=== PATIENT | male | born 1980 | race Caucasian/White ===

== ENCOUNTER 2024-12-06 19:30 | Emergency (ER) | payer SELFPAY ==
[2024-12-06 19:39] VITALS: TEMP 98.6; BMI 33.6
[2024-12-06] MEDS ORDERED: AMOX TR/POT CLAV 875MG/125MG TABLETS (FP) ONE (20:08)
[2024-12-06] MEDS ORDERED: ACETAMINOPHEN 500 MG TABLET (FP) ONE (20:08)
[2024-12-06] MEDS: ACETAMINOPHEN 500 MG TABLET (FP) PO ONE (20:11)
[2024-12-06] MEDS: AMOX TR/POT CLAV 875MG/125MG TABLETS (FP) PO ONE (20:11)
[2024-12-06 21:00] VITALS: BP 130/90; PULSE 100; RESP 18
== END 2024-12-06 21:47 | disposition home or self-care (01) ==
LOC: JERFT 19:30
DX: J01.90 Acute sinusitis, unspecified (principal); J02.9 Acute pharyngitis, unspecified; R50.9 Fever, unspecified; Z20.822 Contact with and (suspected) exposure to COVID-19
CPT/HCPCS: 0241U-QW; 87651; 99283-25

== ENCOUNTER 2024-12-14 16:37 | Inpatient (IN) | payer OTHER ==
[2024-12-14 17:12] VITALS: BMI 33.5
[2024-12-14 18:09] LABS: BASO % 0.2 % (0-2.0); EOS % 0.2 % (0-4.5); HEMATOCRIT 42.7 % (35.4-49); HEMOGLOBIN 14.6 GM/dL (11.7-16.9); LYMPH % 21.4 % (8-40); MCH 27.9 pg (25.7-33.7); MCHC 34.2 g/dl (32.0-35.9); MEAN CELL VOLUME 81.6 fl (80-96); MEAN PLT VOLUME 7.8 fl (7.5-11.1); MONO % 13.4 % (3.8-10.2); NEUT % 64.8 % (42.8-82.8); PLATELET COUNT 223 10^3/uL (134-434); RBC 5.23 M/mm3 (4.00-5.60); WHITE BLOOD COUNT 5.4 K/mm3 (4.0-10.0)
[2024-12-14 18:29] LABS: CHLORIDE 102 mmol/L (98-107); POTASSIUM 3.6 mmol/L (3.5-5.1); SODIUM 138 mmol/L (136-145)
[2024-12-14 18:31] LABS: ALBUMIN 2.7 g/dl (3.4-5.0); ANION GAP 10 mmol/L (4-13); CALCIUM 8.1 mg/dL (8.5-10.1); CO2 26 mmol/L (21-32)
[2024-12-14 18:32] LABS: BLOOD UREA NITROGEN 11.6 mg/dL (7-18)
[2024-12-14 18:33] LABS: GLUCOSE,RANDOM 226 mg/dL (74-106)
[2024-12-14 18:34] LABS: SGOT/AST 120 U/L (15-37); SGPT/ALT 105 U/L (13-61)
[2024-12-14 18:35] LABS: CHOLESTEROL 149 mg/dL (50-200); CREATININE 0.5 mg/dL (0.55-1.3)
[2024-12-14 18:37] LABS: BILIRUBIN,TOTAL 0.5 mg/dL (0.2-1); LDL CHOLESTEROL (ONLY SJRH) 93 mg/dL (5-100)
[2024-12-14 18:38] LABS: ALK PHOS 109 U/L (45-117)
[2024-12-14 18:39] LABS: HDL CHOLESTEROL 40 mg/dL (40-60)
[2024-12-14] MEDS: SODIUM CHLORIDE 0.9% 500 ML INFUS.BAG IV ONE (19:23)
[2024-12-14 19:27] LABS: URINE APPEARANCE CLEAR; URINE BILIRUBIN NEGATIVE (NEGATIVE); URINE COLOR YELLOW; URINE GLUCOSE (UA) 4+ (NEGATIVE); URINE KETONE 1+ (NEGATIVE)
[2024-12-14 19:28] LABS: EPI CELLS 12.4 /uL (0-25.1); PH,URINE 7.5 (5.0-8.0); URINE LEUK ESTERASE NEGATIVE (NEGATIVE); URINE NITRITE NEGATIVE (NEGATIVE); URINE PROTEIN NEGATIVE (NEGATIVE); URINE RBC 56.3 /uL (0-23.9); URINE WBC 4.5 /uL (0-25.8)
[2024-12-14 19:29] LABS: HYALINE CASTS 0.27 /uL (0-3.1); URINE BACTERIA 210.5 /uL (0-1359)
[2024-12-14] MEDS ORDERED: METOCLOPRAMIDE HCL INJECTION 10 MG/2 ML VIAL ONE (23:07)
[2024-12-14] MEDS ORDERED: ACETAMINOPHEN INJECTION 100 ML ONE (23:07)
[2024-12-14] MEDS: ACETAMINOPHEN 1000 MG/100 ML BAG IVPB ONE (23:12)
[2024-12-14] MEDS: METOCLOPRAMIDE HCL INJECTION 10 MG/2 ML VIAL IVPB ONE (23:22)
[2024-12-15] MEDS ORDERED: LORazepam 2 MG/ML SDV VIAL ONE (01:10)
[2024-12-15] MEDS ORDERED: levETIRAcetam 500 MG/5 ML INJECTION VIAL IVPB ONE (01:29)
[2024-12-15] MEDS: levETIRAcetam 500 MG/5 ML INJECTION VIAL IVPB ONE (01:34)
[2024-12-15] MEDS ORDERED: LORazepam 2 MG/ML SDV VIAL IVPUSH PRN (05:56)
[2024-12-15 06:16] LABS: BASO % 0.3 % (0-2.0); EOS % 1.3 % (0-4.5); HEMATOCRIT 39.2 % (35.4-49); HEMOGLOBIN 13.2 GM/dL (11.7-16.9); LYMPH % 30.8 % (8-40); MCH 27.9 pg (25.7-33.7); MCHC 33.8 g/dl (32.0-35.9); MEAN CELL VOLUME 82.7 fl (80-96); MEAN PLT VOLUME 7.8 fl (7.5-11.1); MONO % 13.1 % (3.8-10.2); NEUT % 54.5 % (42.8-82.8); PLATELET COUNT 233 10^3/uL (134-434); RBC 4.74 M/mm3 (4.00-5.60); RDW 12.9 % (11.9-15.9)
[2024-12-15] MEDS: INSULIN ASPART SLIDING SCALE (NOVOLOG) 1 VIAL SQ SCH (06:21)
[2024-12-15 06:44] LABS: POTASSIUM 3.4 mmol/L (3.5-5.1)
[2024-12-15 06:47] LABS: CALCIUM 7.8 mg/dL (8.5-10.1)
[2024-12-15 06:48] LABS: ALBUMIN 2.4 g/dl (3.4-5.0); BLOOD UREA NITROGEN 9.6 mg/dL (7-18)
[2024-12-15 06:51] LABS: CREATININE 0.5 mg/dL (0.55-1.3)
[2024-12-15 06:52] LABS: BILIRUBIN,TOTAL 0.4 mg/dL (0.2-1)
[2024-12-15 06:53] LABS: TOT PROT 5.4 g/dl (6.4-8.2)
[2024-12-15] MEDS: POTASSIUM CHLORIDE ORAL LIQUID 20 MEQ/15 ML PO ONE (08:45)
[2024-12-15] MEDS ORDERED: POTASSIUM CHLORIDE ORAL LIQUID 20 MEQ/15 ML ONE (09:06)
[2024-12-15] MEDS ORDERED: ENOXAPARIN NA (PORCINE) 40 MG/0.4 ML DISP.SYRIN SQ ONE (11:52)
[2024-12-15] MEDS: ENOXAPARIN NA (PORCINE) 40 MG/0.4 ML DISP.SYRIN SQ SCH (11:59)
[2024-12-15] MEDS ORDERED: INSULIN ASPART SLIDING SCALE (NOVOLOG) 1 VIAL SQ ONE ×2 (12:28→16:16)
[2024-12-15 14:44] LABS: PHENCYCLIDINE,URINE NEGATIVE (NEGATIVE); URINE BARBITURATES NEGATIVE (NEGATIVE); URINE BENZODIAZEPINES NEGATIVE (NEGATIVE)
[2024-12-15 14:45] LABS: COCAINE, UR NEGATIVE (NEGATIVE); METHADONE, UR NEGATIVE (NEGATIVE)
[2024-12-15 14:46] LABS: OPIATES, URI NEGATIVE (NEGATIVE); URINE AMPHETAMINES NEGATIVE (NEGATIVE)
[2024-12-16] MEDS: IBUPROFEN 600 MG TABLET (FP) PO ONE (01:12)
[2024-12-16 07:02] LABS: HEMATOCRIT 39.7 % (35.4-49); HEMOGLOBIN 13.3 GM/dL (11.7-16.9); MCH 27.8 pg (25.7-33.7); MCHC 33.5 g/dl (32.0-35.9); MEAN CELL VOLUME 82.9 fl (80-96); MEAN PLT VOLUME 7.7 fl (7.5-11.1); PLATELET COUNT 266 10^3/uL (134-434); RBC 4.79 M/mm3 (4.00-5.60); RDW 12.5 % (11.9-15.9); WHITE BLOOD COUNT 4.8 K/mm3 (4.0-10.0)
[2024-12-16 07:28] LABS: CHLORIDE 103 mmol/L (98-107); POTASSIUM 3.8 mmol/L (3.5-5.1); SODIUM 137 mmol/L (136-145)
[2024-12-16 07:39] LABS: CALCIUM 8.1 mg/dL (8.5-10.1)
[2024-12-16 07:40] LABS: ALBUMIN 2.6 g/dl (3.4-5.0); ANION GAP 8 mmol/L (4-13); BLOOD UREA NITROGEN 13.2 mg/dL (7-18); CO2 26 mmol/L (21-32); GLUCOSE,RANDOM 231 mg/dL (74-106)
[2024-12-16 07:43] LABS: CREATININE 0.6 mg/dL (0.55-1.3); SGOT/AST 91 U/L (15-37); SGPT/ALT 107 U/L (13-61)
[2024-12-16 07:44] LABS: BILIRUBIN,TOTAL 0.6 mg/dL (0.2-1); TOT PROT 5.9 g/dl (6.4-8.2)
[2024-12-16 07:46] LABS: ALK PHOS 97 U/L (45-117)
[2024-12-16] MEDS ORDERED: levETIRAcetam 500 MG TABLET (FP) PO SCH (10:00)
[2024-12-16] MEDS: SODIUM CHLORIDE 1,000 ML IV SCH (17:07)
[2024-12-16] MEDS: INSULIN (LEVEMIR) 100 UNITS/ML UNITS SQ SCH (21:30)
[2024-12-17 08:08] LABS: HEMATOCRIT 39.8 % (35.4-49); HEMOGLOBIN 13.6 GM/dL (11.7-16.9); MCH 28.3 pg (25.7-33.7); MCHC 34.2 g/dl (32.0-35.9); MEAN CELL VOLUME 82.6 fl (80-96); MEAN PLT VOLUME 7.6 fl (7.5-11.1); PLATELET COUNT 299 10^3/uL (134-434); RBC 4.81 M/mm3 (4.00-5.60); RDW 12.9 % (11.9-15.9); WHITE BLOOD COUNT 5.2 K/mm3 (4.0-10.0)
[2024-12-17 08:17] LABS: POTASSIUM 3.7 mmol/L (3.5-5.1)
[2024-12-17 08:28] LABS: ALBUMIN 2.7 g/dl (3.4-5.0); BLOOD UREA NITROGEN 10.6 mg/dL (7-18); CALCIUM 8.4 mg/dL (8.5-10.1)
[2024-12-17 08:31] LABS: CREATININE 0.6 mg/dL (0.55-1.3)
[2024-12-17 08:33] LABS: BILIRUBIN,TOTAL 0.5 mg/dL (0.2-1)
[2024-12-18 08:34] LABS: HEMATOCRIT 40.9 % (35.4-49); HEMOGLOBIN 13.9 GM/dL (11.7-16.9); MCH 28.3 pg (25.7-33.7); MCHC 33.9 g/dl (32.0-35.9); MEAN CELL VOLUME 83.4 fl (80-96); MEAN PLT VOLUME 7.6 fl (7.5-11.1); PLATELET COUNT 331 10^3/uL (134-434); RDW 12.8 % (11.9-15.9); WHITE BLOOD COUNT 4.7 K/mm3 (4.0-10.0)
[2024-12-18 08:45] LABS: POTASSIUM 3.8 mmol/L (3.5-5.1)
[2024-12-18 08:52] LABS: ALBUMIN 2.9 g/dl (3.4-5.0); CALCIUM 8.6 mg/dL (8.5-10.1)
[2024-12-18 08:53] LABS: BLOOD UREA NITROGEN 10.1 mg/dL (7-18)
[2024-12-18 08:56] LABS: BILIRUBIN,TOTAL 0.4 mg/dL (0.2-1); CREATININE 0.7 mg/dL (0.55-1.3)
[2024-12-18 08:57] LABS: TOT PROT 6.3 g/dl (6.4-8.2)
[2024-12-18 09:30] VITALS: RESP 18
[2024-12-18] MEDS: AMOX TR/POT CLAV 875MG/125MG TABLETS (FP) PO SCH (10:57)
[2024-12-18 17:49] VITALS: BP 127/91; PULSE 87; TEMP 98.1
== END 2024-12-18 18:25 | disposition home health service (06) | DRG 53 ==
LOC: JER 16:37 → JERBED 18:39 → J4W 12-15 16:25
PROVIDERS: ADMIT Student in an Organized Health Care Education/Training Program; ATTEND Physician Assistant
DX: R56.9 Unspecified convulsions (principal); R42 Dizziness and giddiness; M62.82 Rhabdomyolysis; E87.6 Hypokalemia; R74.01 Elevation of levels of liver transaminase levels; G93.41 Metabolic encephalopathy; G30.9 Alzheimer's disease, unspecified; F02.80 Dementia in other diseases classified elsewhere, unspecified severity, without behavioral disturbance, psychotic disturbance, mood disturbance, and anxiety; E11.9 Type 2 diabetes mellitus without complications; J32.9 Chronic sinusitis, unspecified; H53.462 Homonymous bilateral field defects, left side
CPT/HCPCS: 36415; 70450-TC; 70496-TC; 70498-TC; 70553-TC; 80053; 80061; 80307; 81003; 82550; 82553; 82962; 83036; 83735; 84100; 84146; 84484; 85025; 85027; 86850; 86900; 86901; 93005; 93010; 93306-TC; 95816; 97116-GP; 97162-GP; 99285-25; J0131; Q9967